=== PATIENT | female | born 1980 | race Caucasian/White ===

== ENCOUNTER 2017-01-06 18:48 | Emergency (ER) | payer OTHER ==
[~2017-01-06] VITALS: Ht 162.6 cm; Wt 72.0 kg
[~2017-01-06 18:48] MED LIST: FERR256T; MO4B PO; VICOT PO
[2017-01-06] MEDS ORDERED: HYDROCODONE/ACETAMINOPHEN 5-325 MG TABLET PO ONE (20:15)
[2017-01-06 20:18] VITALS: BP 121/81
== END 2017-01-06 20:48 | disposition home or self-care (01) ==
LOC: EMS 18:51
DX: M75.31 Calcific tendinitis of right shoulder (principal); J45.909 Unspecified asthma, uncomplicated
CPT/HCPCS: 99283